=== PATIENT | female | born 1970 | race Caucasian/White ===

== ENCOUNTER 2016-10-23 06:26 | Emergency (ER) | payer OTHER ==
[~2016-10-23] VITALS: Ht 162.6 cm; Wt 80.0 kg
[~2016-10-23 06:26] MED LIST: ALBU1.25 NEB; ALBU17I INH; IPRA0.02 NEB; LEVA500T PO; LEXA10TA PO; METH4PAK PO; PRED10PA PO; SOMA350T PO; VICOTAB4 PO; ZITH250T PO
[2016-10-23 06:29] VITALS: BP 142/84; PULSE 112; RESP 24; TEMP 98.7; O2SAT 100
[2016-10-23] MEDS ORDERED: VENTAER INH ×2 (06:51→09:14)
[2016-10-23] MEDS ORDERED: VICOTAB4 PO (06:52)
[2016-10-23] MEDS ORDERED: CARI350T20 PO (06:52)
[2016-10-23] MEDS ORDERED: LEXA10TA PO (06:52)
[2016-10-23] MEDS ORDERED: IPRA17I INH (06:53)
[2016-10-23] MEDS ORDERED: ALBU6.7H INH (06:54)
[2016-10-23] MEDS ORDERED: SODIUM CHLOR 0.9% 1000 ML INJ 1,000 ML IV ONE (07:15)
[2016-10-23] MEDS ORDERED: SODIUM CHLORIDE 0.9% FLUSH 5 ML FLUSH IVF PRN (07:15)
[2016-10-23] MEDS ORDERED: methylPREDNISolone SOD SUCC 125 MG/2 ML VIAL IVP ONE (07:15)
[2016-10-23] MEDS: RESP: ALBUTEROL 2.5 MG/IPRATROPIUM 0.5 MG NEB (SCH) INH (07:25)
[2016-10-23 07:29] VITALS: O2SAT 100
--- NOTE | 2016-10-23 07:40 | PD ---
HPI Chief Complaint: Respiratory Symptoms Time Seen by Provider: 06:56 Travel History International Travel<30 days: No Contact w/Intl Traveler<30days: No Traveled to known affect area: No History of Present Illness HPI Is a 46-year-old woman with a history of asthma presents to the emergency department complaining of increased asthma symptoms for past couple days. She describes shortness of breath and chest tightness with nonproductive cough consistent with her previous asthma. Last night symptoms were worsening or really relieved with her home bronchodilators. She had some chills but no definite fevers. No other complaints. No nausea or vomiting. No diarrhea constipation. She does travel a lot for work, spitting a lot of time in the car , but no leg swelling or leg pain or history of DVT/PE. History Past Medical History Narrative Medical Asthma Tetanus Vaccination: Unknown Influenza Vaccination: Yes Menopausal: No : 0 Social History Alcohol Use: No Tobacco Use: No (QUIT SMOKING IN 2005) Allergies-Medications (Allergen,Severity, Reaction): Coded Allergies: Aspirin (Verified Allergy, Severe, ASTHMA, 10/23/16) Keflex (Verified Allergy, Severe, Hives, 10/23/16) HIVES AND FEVER Amoxicillin (Verified Adverse Reaction, Severe, HIGH FEVER/RASH, 10/23/16) Sulfa (Verified Adverse Reaction, Severe, HIGH FEVER/RASH, 10/23/16) Uncoded Allergies: STATIN DRUGS (Allergy, Severe, ACHING, 04/30/06) GAMMAGLOBULIN (Adverse Reaction, Severe, WHOLE BODY MUSCLE PARALYSIS, ) Reported Meds & Prescriptions Reported Meds & Active Scripts Active Reported Proventil Hfa 6.7 GM Inh (Albuterol Sulfate) 90 Mcg/Act Aer 2 Puff INH Q4-6H PRN Atrovent HFA 12.9 GM Inh (Ipratropium [place]) 17 Mcg/Act Aer 2 Puff INH QID Carisoprodol 350 Mg Tab 350 Mg PO QID PRN Lexapro (Escitalopram Oxalate) 10 Mg Tab 10 Mg PO DAILY Vicoprofen (Hydrocodone-Ibuprofen) 7.5-200 Mg Tab 1 Tab PO Q6H PRN Review of Systems Except as stated in HPI: all other systems reviewed are Neg Physical Exam Narrative GENERAL: Well-appearing 46-year-old woman, no acute distress. SKIN: Warm and dry. NECK: Trachea midline. No JVD. CARDIOVASCULAR: Regular rate and rhythm. No murmur appreciated. RESPIRATORY: No respiratory distress. Lungs sound fairly clear. No definite wheezes rhonchi's or Rales. GASTROINTESTINAL: Abdomen soft, non-tender, nondistended. Hepatic and splenic margins not palpable. MUSCULOSKELETAL: No obvious deformities. No edema. No calf tenderness. NEUROLOGICAL: Awake and alert. No obvious cranial nerve deficits. Motor grossly within normal limits. Normal speech. PSYCHIATRIC: Appropriate mood and affect; insight and judgment normal. Data Data Last Documented VS Vital Signs Date Time Temp Pulse Resp B/P Pulse Ox O2 Delivery O2 Flow Rate FiO2 10/23/16 08:55 100 20 124/56 99 10/23/16 07:29 21 10/23/16 06:37 Room Air 10/23/16 06:29 98.7 Orders Electrocardiogram (10/23/16 07:07) Chest, Single Ap (10/23/16 07:07) Sodium Chloride 0.9% Flush (Ns Flush) (10/23/16 07:15) Methylprednisolone So Succ Inj (Solumedr (10/23/16 07:15) Albuterol-Ipratropium Neb (Duoneb Neb) (10/23/16 07:15) Sodium Chlor 0.9% 1000 Ml Inj (Ns 1000 M (10/23/16 07:15) MDM Medical Decision Making Medical Screen Exam Complete: Yes Emergency Medical Condition: Yes Interpretation(s) Chest x-ray negative. Differential Diagnosis Asthma, pneumonia, bronchitis, PE, ACS, pneumothorax, other Narrative Course Medical decision making 46-year-old presents emergency Department with chest tightness wheezing and cough, that she feels is completely consistent with her previous asthma symptoms. She gets symptoms chronically, especially weather changes. She has symptoms with flare up about once a year or so. In between flareups she does pretty well and doesn't use her inhalers a lot. She never been intubated. She' s had asthma since childhood. She feels otherwise well. On exam I don't hear a lot of wheezing. Raises a possibility for some kind of mimic. We did x-ray and EKG. No other evidence of PE. We'll give steroids and bronchodilators and fluids, reassess. FINAL: Patient feeling much improved. Still not much wheezing. I still some concern this may be some an asthma mimic but she looks otherwise well, states she feels significantly improved after breathing treatments and steroids. Recommend continue treatment for asthma exacerbation. I discussed the diagnostic uncertainty with the patient and she agrees to return for any worsening symptoms. Diagnosis Primary Impression: Shortness of breath Patient Instructions: General Instructions Additional Instructions: Continue albuterol every 4-6 hours until symptoms all. Take steroids as prescribed. Return to the emergency department for any itching trouble breathing, chest pain , or any other new or worsening symptoms. Follow-up with her primary doctor in the next 2-3 days. Med/Other Pt SpecificInfo: Prescription(s) given Scripts Albuterol 18 GM Inh (Ventolin Hfa 18 GM Inh)90 Mcg/Act Aer2 Puff INH Q4-6H PRN ( SHORTNESS OF BREATH) #1 INHALER Prov:Demian Pritchett MD 10/23/16 Prednisone (Deltasone)20 Mg Tab60 Mg PO DAILY 5 Days Prov:Demian Pritchett MD 10/23/16 Disposition: 01 DISCHARGE HOME Condition: Stable Demian Pritchett MD Oct 23, 2016 07:40
--- NOTE | 2016-10-23 07:45 | RADRPT ---
EXAM DATE/TIME: 10/23/2016 07:24 [facility] COMPARISON: CHEST SINGLE AP, July 15, 2015, 20:03. INDICATIONS : Shortness of breath. MEDICAL HISTORY : Asthma SURGICAL HISTORY : None. ENCOUNTER: Initial ACUITY: 1 day PAIN SCORE: 0/10 LOCATION: Bilateral chest FINDINGS: A single view of the chest demonstrates the lungs to be symmetrically aerated without evidence of mas s, infiltrate or effusion. The cardiomediastinal contours are unremarkable. Osseous structures are intact. CONCLUSION: No acute disease. No significant change has occurred. Luc De La Vega MD on October 23, 2016 at 7:42 Board Certified Radiologist. This report was verified electronically.
[2016-10-23 08:55] VITALS: BP 124/56; PULSE 100; RESP 20; O2SAT 99
[2016-10-23] MEDS ORDERED: PRED-503 PO (09:14)
[2016-10-23] MEDS ORDERED: AZIT250T3 PO (23:04)
--- NOTE | 2016-10-24 08:11 | EKG ---
Date Performed: 10/23/2016 Time Performed: 07:42:50 PTAGE: 46 years EKG: Sinus rhythm WITH SHORT NC INTERVAL NONSPECIFIC T-WAVE ABNORMALITY TRIVIAL VARIATION IN THE ST-T ABNORMALITIES CO MPARED TO THE PRIOR TRACING. BORDERLINE ECG PREVIOUS TRACING : 08/28/2008 13.02 DOCTOR: Lawrence Baer Interpretating Date/Time 10/24/2016 08:08:57
== END 2016-10-23 09:36 | disposition home or self-care (01) ==
LOC: NEPE 06:26
DX: R06.02 Shortness of breath (principal); R07.89 Other chest pain; J45.909 Unspecified asthma, uncomplicated
CPT/HCPCS: 71010; 93005; 94640; 94664; 96361; 96374; 99283; J2930; J7030

== ENCOUNTER 2016-10-23 19:58 | Emergency (ER) | payer OTHER ==
[~2016-10-23] VITALS: Ht 162.6 cm; Wt 80.0 kg
[~2016-10-23 19:58] MED LIST changes: +ALBU6.7H INH; +CARI350T20 PO; +IPRA17I INH; +PRED-503 PO; +VENTAER INH
[2016-10-23 20:01] VITALS: BP 147/75; PULSE 121; RESP 24; TEMP 99.7; O2SAT 99
[2016-10-23 20:16] VITALS: BP 190/90; PULSE 132; RESP 22; O2SAT 99
[2016-10-23 20:22] VITALS: RESP 20; O2SAT 99
[2016-10-23 20:27] VITALS: BP 148/64; PULSE 128; RESP 18; O2SAT 99
[2016-10-23] MEDS ORDERED: SODIUM CHLORIDE 0.9% FLUSH 5 ML FLUSH IVF PRN (20:30)
[2016-10-23] MEDS ORDERED: RESP: ALBUTEROL 2.5 MG/IPRATROPIUM 0.5 MG NEB (SCH) NEB ONE (20:30)
[2016-10-23 20:59] LABS: AUTOMATED NEUTROPHIL # 9.4 TH/MM3 (1.8-7.7); BASOPHIL % 0.2 % (0.0-2.0); HEMATOCRIT 43.8 % (35.0-46.0); HEMO FLAGS DIFF FINAL; LYMPH % 5.2 % (9.0-44.0); LYMPHOCYTE # 0.5 TH/MM3 (1.0-4.8); MEAN CELL VOLUME 90.7 FL (80.0-100.0); MEAN CORPUSCULAR HEMOGLOBIN 30.1 PG (27.0-34.0); MEAN CORPUSCULAR HGB CONC 33.2 % (32.0-36.0); MONO % 3.7 % (0.0-8.0); NEUT % 90.9 % (16.0-70.0); PLATELET COUNT 257 TH/MM3 (150-450); RED BLOOD COUNT 4.83 MIL/MM3 (4.00-5.30); RED CELL DISTRIBUTION WIDTH 15.3 % (11.6-17.2); WHITE BLOOD COUNT 10.4 TH/MM3 (4.0-11.0)
[2016-10-23 21:12] LABS: APTT (PATIENT) 25.2 SEC (24.3-30.1); PROTHROMBIN TIME - PATIENT 10.7 SEC (9.8-11.6)
[2016-10-23 21:21] LABS: ANION GAP 11 MEQ/L (5-15); AST (GOT) 11 U/L (15-37); BICARBONATE 21.5 MEQ/L (21.0-32.0); BLOOD UREA NITROGEN 11 MG/DL (7-18); CHLORIDE 107 MEQ/L (98-107); GLOMERULAR FILTRATION RATE 54 ML/MIN (>89); POTASSIUM 4.2 MEQ/L (3.5-5.1); SODIUM (NA) 139 MEQ/L (136-145)
[2016-10-23 21:40] LABS: ALKALINE PHOSPHATASE 97 U/L (45-117); ALT (GPT) 27 U/L (10-53); TOTAL BILIRUBIN ADULT 0.2 MG/DL (0.2-1.0)
[2016-10-23 21:44] LABS: CREATINE KINASE 46 U/L (26-192)
[2016-10-23] MEDS ORDERED: IOHEXOL 350 MG/ML 10 ML VIAL (for RAD DIAG) IV ONE (21:59)
--- NOTE | 2016-10-23 22:28 | RADRPT ---
EXAM DATE/TIME: 10/23/2016 21:47 [facility] COMPARISON: No previous studies available for comparison. INDICATIONS : Short of breath with chest tightness. IV CONTRAST: 59 cc Omnipaque 350 (iohexol) IV RADIATION DOSE: 12.90 CTDIvol (mGy) MEDICAL HISTORY : Asthma. SURGICAL HISTORY : None. ENCOUNTER: Initial ACUITY: 1 day PAIN SCALE: 3/10 LOCATION: chest TECHNIQUE: Volumetric scanning of the chest was performed using a pulmonary embolism protocol MIP images were reconstructed. Using automated exposure control and adjustment of the mA and/or kV acco rding to patient size, radiation dose was kept as low as reasonably achievable to obtain optimal diag nostic quality images. FINDINGS: There are no suspicious lung lesions identified. There is no axillary adenopathy. The re is no mediastinal adenopathy. There is no evidence for central pulmonary emboli. There is no pericardial effusion. Portion of the liver and spleen identified are free of focal defects. CONCLUSION: There is no evidence for central pulmonary emboli. Joaquín Samuels MD FACR on October 23, 2016 at 22:23 Board Certified Radiologist. This report was verified electronically.
[2016-10-23] MEDS ORDERED: AZIT250T3 PO (23:04)
--- NOTE | 2016-10-23 23:04 | PD ---
HPI Chief Complaint: Respiratory Distress Time Seen by Provider: 20:20 Travel History International Travel<30 days: No Contact w/Intl Traveler<30days: No Traveled to known affect area: No History of Present Illness HPI Patient is a 46-year-old female with the presentation emergency department for the second time today for shortness of breath. Patient was seen this morning for shortness of breath seen by Dr. carr who gave her breathing treatments and she was feeling better. At that time her lung sounds were documented as clear prior to his workup. Patient also endorses she's been coughing congestion she' s been taking some breathing treatments at home but they have stopped working. She was also started on prednisone this morning. No antibiotics. 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 No leg swelling no fevers. States her symptoms are gone on for the past 2-3 days and gradually worsening. PFSH Past Medical History Hx Anticoagulant Therapy: No Arthritis: Yes Asthma: Yes (SINCE SHE WAS A CHILD) Autoimmune Disease: No Heart Rhythm Problems: No Cardiovascular Problems: No High Cholesterol: No Chemotherapy: No Chest Pain: No Congestive Heart Failure: No COPD: No Cerebrovascular Accident: No Diabetes: No Diminished Hearing: No GERD: Yes Glaucoma: No Headaches: Yes (SINUS OCCASIONAL) Hepatitis: No Hiatal Hernia: No Hypertension: No Kidney Stones: No Respiratory: Yes (ASTHMA) Immunizations Current: No Myocardial Infarction: No Renal Failure: No Sleep Apnea: No Thyroid Disease: No Ulcer: No Tetanus Vaccination: < 5 Years Influenza Vaccination: Yes ?: Not Menopausal: No : 0 Past Surgical History AICD: No Appendectomy: Yes (1989) Cholecystectomy: Yes (1996) Endocrine Surgery: Yes (TONSILS AND ADENOIDS A CHILD) Hysterectomy: No Pacemaker: No Tonsillectomy: Yes (1975) Social History Alcohol Use: No Tobacco Use: No (QUIT SMOKING IN 2005) Substance Use: No Allergies-Medications (Allergen,Severity, Reaction): Coded Allergies: Aspirin (Verified Allergy, Severe, ASTHMA, 10/23/16) Keflex (Verified Allergy, Severe, Hives, 10/23/16) HIVES AND FEVER Amoxicillin (Verified Adverse Reaction, Severe, HIGH FEVER/RASH, 10/23/16) Sulfa (Verified Adverse Reaction, Severe, HIGH FEVER/RASH, 10/23/16) Uncoded Allergies: STATIN DRUGS (Allergy, Severe, ACHING, 04/30/06) GAMMAGLOBULIN (Adverse Reaction, Severe, WHOLE BODY MUSCLE PARALYSIS, ) Reported Meds & Prescriptions Reported Meds & Active Scripts Active Azithromycin 250 Mg Tab 250 Mg PO DIRECTED Take 2 tabs (500 mg) on day 1 then 1 tab daily x 4 days. Ventolin Hfa 18 GM Inh (Albuterol Sulfate) 90 Mcg/Act Aer 2 Puff INH Q4-6H PRN Deltasone (Prednisone) 20 Mg Tab 60 Mg PO DAILY 5 Days Reported Proventil Hfa 6.7 GM Inh (Albuterol Sulfate) 90 Mcg/Act Aer 2 Puff INH Q4-6H PRN Atrovent HFA 12.9 GM Inh (Ipratropium [place]) 17 Mcg/Act Aer 2 Puff INH QID Carisoprodol 350 Mg Tab 350 Mg PO QID PRN Vicoprofen (Hydrocodone-Ibuprofen) 7.5-200 Mg Tab 1 Tab PO Q6H PRN Review of Systems Except as stated in HPI: all other systems reviewed are Neg Physical Exam Narrative GENERAL: Well developed well-nourished stress SKIN: Warm and dry. HEAD: Atraumatic. Normocephalic. EYES: Pupils equal and round. No scleral icterus. No injection or drainage. ENT: No nasal bleeding or discharge. Mucous membranes pink and moist. NECK: Trachea midline. No JVD. CARDIOVASCULAR: Regular rhythm minimally tachycardic.. No murmur appreciated. RESPIRATORY: No accessory muscle use. Clear to auscultation. Breath sounds equal bilaterally. Minimally tachypneic GASTROINTESTINAL: Abdomen soft, non-tender, nondistended. Hepatic and splenic margins not palpable. MUSCULOSKELETAL: No obvious deformities. No clubbing. No cyanosis. No edema. NEUROLOGICAL: Awake and alert. No obvious cranial nerve deficits. Motor grossly within normal limits. Normal speech. PSYCHIATRIC: Appropriate mood and affect; insight and judgment normal. Data Data Last Documented VS Vital Signs Date Time Temp Pulse Resp B/P Pulse Ox O2 Delivery O2 Flow Rate FiO2 10/23/16 23:31 98.9 92 18 136/54 99 10/23/16 20:27 Room Air Orders Electrocardiogram (10/23/16 20:20) Ckmb (Isoenzyme) Profile (10/23/16 20:20) Complete Blood Count With Diff (10/23/16 20:20) Comprehensive Metabolic Panel (10/23/16 20:20) Magnesium (Mg) (10/23/16 20:20) Prothrombin Time / Inr (Pt) (10/23/16 20:20) Act Partial Throm Time (Ptt) (10/23/16 20:20) Troponin I (10/23/16 20:20) Ecg Monitoring (10/23/16 20:20) Bilateral Bp Monitoring (10/23/16 20:20) Iv Access Insert/Monitor (10/23/16 20:20) Oximetry (10/23/16 20:20) Oxygen Administration (10/23/16 20:20) Sodium Chloride 0.9% Flush (Ns Flush) (10/23/16 20:30) Albuterol-Ipratropium Neb (Duoneb Neb) (10/23/16 20:30) Ct Pulmonary Angiogram (10/23/16 ) Iohexol 350 Inj (Omnipaque 350 Inj) (10/23/16 21:59) Labs Laboratory Tests Test 10/23/16 20:30 White Blood Count 10.4 TH/MM3 Red Blood Count 4.83 MIL/MM3 Hemoglobin 14.5 GM/DL Hematocrit 43.8 % Mean Corpuscular Volume 90.7 FL Mean Corpuscular Hemoglobin 30.1 PG Mean Corpuscular Hemoglobin 33.2 % Concent Red Cell Distribution Width 15.3 % Platelet Count 257 TH/MM3 Mean Platelet Volume 11.6 FL Neutrophils (%) (Auto) 90.9 % Lymphocytes (%) (Auto) 5.2 % Monocytes (%) (Auto) 3.7 % Eosinophils (%) (Auto) 0.0 % Basophils (%) (Auto) 0.2 % Neutrophils # (Auto) 9.4 TH/MM3 Lymphocytes # (Auto) 0.5 TH/MM3 Monocytes # (Auto) 0.4 TH/MM3 Eosinophils # (Auto) 0.0 TH/MM3 Basophils # (Auto) 0.0 TH/MM3 CBC Comment DIFF FINAL Differential Comment Prothrombin Time 10.7 SEC Prothromb Time International 1.0 RATIO Ratio Activated Partial 25.2 SEC Thromboplast Time Sodium Level 139 MEQ/L Potassium Level 4.2 MEQ/L Chloride Level 107 MEQ/L Carbon Dioxide Level 21.5 MEQ/L Anion Gap 11 MEQ/L Blood Urea Nitrogen 11 MG/DL Creatinine 1.10 MG/DL Estimat Glomerular Filtration 54 ML/MIN Rate Random Glucose 168 MG/DL Calcium Level 9.3 MG/DL Magnesium Level 2.0 MG/DL Total Bilirubin 0.2 MG/DL Aspartate Amino Transf 11 U/L (AST/SGOT) Alanine Aminotransferase 27 U/L (ALT/SGPT) Alkaline Phosphatase 97 U/L Total Creatine Kinase 46 U/L Troponin I LESS THAN 0.02 NG/ML Total Protein 7.8 GM/DL Albumin 4.0 GM/DL MDM Medical Decision Making Medical Screen Exam Complete: Yes Emergency Medical Condition: Yes Differential Diagnosis Bronchitis, pneumonia, PE. Narrative Course Patient seen earlier today for same. Given clear lung sounds will broaden workup. EKG, CT PE labs negative. Feeling better after duoneb. VS normalizing. Stable for discharge. D/W her need to follow up with PCP. Diagnosis Primary Impression: Bronchitis Med/Other Pt SpecificInfo: Prescription(s) given Scripts Azithromycin 250 Mg [id number] Mg PO DIRECTED #6 TAB Ref 0 Take 2 tabs (500 mg) on day 1 then 1 tab daily x 4 days. Prov:Hardik Barrera MD 10/23/16 Disposition: DISCHARGE HOME Condition: Stable Hardik Barrera MD Oct 23, 2016 23:04
[2016-10-23 23:31] VITALS: BP 136/54; TEMP 98.9
--- NOTE | 2016-10-24 20:11 | EKG ---
Date Performed: 10/23/2016 Time Performed: 20:29:40 PTAGE: 46 years EKG: SINUS TACHYCARDIA WITH SHORT DC INTERVAL ABNORMAL RHYTHM ECG PREVIOUS TRACING : 10/23/2016 07.42 Compared to the previous tracing, rate faster DOCTOR: Lana Rowan Interpretating Date/Time 10/24/2016 20:10:51
== END 2016-10-23 23:32 | disposition home or self-care (01) ==
LOC: NEPA 19:58
DX: J40 Bronchitis, not specified as acute or chronic (principal); R00.0 Tachycardia, unspecified; R07.89 Other chest pain
CPT/HCPCS: 71275; 80053; 82550; 83735; 84484; 85025; 85610; 85730; 93005; 94664; 99284; Q9967

== ENCOUNTER 2017-02-28 22:07 | Emergency (ER) | payer OTHER ==
[~2017-02-28] VITALS: Ht 162.6 cm; Wt 84.5 kg
[~2017-02-28 22:07] MED LIST changes: -ALBU1.25 NEB; -ALBU17I INH; +AZIT250T3 PO; -IPRA0.02 NEB; -LEVA500T PO; -LEXA10TA PO; -METH4PAK PO; -PRED10PA PO; -SOMA350T PO; -ZITH250T PO
[2017-02-28 22:18] VITALS: BP 144/83; PULSE 66; RESP 16; TEMP 98.7; O2SAT 99
[2017-02-28] MEDS ORDERED: HYDR7.5T76 PO (22:30)
[2017-02-28] MEDS ORDERED: DICL75TA PO (22:30)
[2017-02-28] MEDS ORDERED: LEXA10TA PO (22:30)
--- NOTE | 2017-02-28 22:34 | PD ---
HPI Chief Complaint: Bite or Sting Time Seen by Provider: 22:32 Travel History International Travel<30 days: No Contact w/Intl Traveler<30days: No Traveled to known affect area: No History of Present Illness HPI 46 year old female with PMH of asthma presents to the ED for evaluation of tick bite of the neck. Patient is unsure when the tick attached, but states that while driving home today she felt something in her left posterior hairline and removed a tick from the area. She is concerned that the head of the tick may still be in place. Denies other somatic complaints. PFSH Past Medical History Hx Anticoagulant Therapy: No Arthritis: Yes Asthma: Yes (SINCE SHE WAS A CHILD) Autoimmune Disease: No Heart Rhythm Problems: No Cardiovascular Problems: No High Cholesterol: No Chemotherapy: No Chest Pain: No Congestive Heart Failure: No COPD: No Cerebrovascular Accident: No Diabetes: No Diminished Hearing: No GERD: Yes Glaucoma: No Headaches: Yes (SINUS OCCASIONAL) Hepatitis: No Hiatal Hernia: No Hypertension: No Kidney Stones: No Respiratory: Yes (ASTHMA) Immunizations Current: No Myocardial Infarction: No Renal Failure: No Sleep Apnea: No Thyroid Disease: No Ulcer: No ?: Not LMP: last week Menopausal: No : 0 Past Surgical History AICD: No Appendectomy: Yes (1989) Cholecystectomy: Yes (1996) Endocrine Surgery: Yes (TONSILS AND ADENOIDS A CHILD) Hysterectomy: No Pacemaker: No Tonsillectomy: Yes (1975) Social History Alcohol Use: No Tobacco Use: No (QUIT SMOKING IN 2005) Substance Use: No Allergies-Medications (Allergen,Severity, Reaction): Coded Allergies: Aspirin (Verified Allergy, Severe, ASTHMA, 10/23/16) Keflex (Verified Allergy, Severe, Hives, 10/23/16) HIVES AND FEVER Amoxicillin (Verified Adverse Reaction, Severe, HIGH FEVER/RASH, 10/23/16) Sulfa (Verified Adverse Reaction, Severe, HIGH FEVER/RASH, 10/23/16) Uncoded Allergies: STATIN DRUGS (Allergy, Severe, ACHING, 04/30/06) GAMMAGLOBULIN (Adverse Reaction, Severe, WHOLE BODY MUSCLE PARALYSIS, ) Reported Meds & Prescriptions Reported Meds & Active Scripts Active Ventolin Hfa 18 GM Inh (Albuterol Sulfate) 90 Mcg/Act Aer 2 Puff INH Q4-6H PRN Reported Diclofenac Sodium DR (Diclofenac Sodium) 75 Mg Tabdr 75 Mg PO DAILY Hydrocodone-Ibuprofen 7.5-200 Mg Tab 1 Tab PO Q6H PRN Lexapro (Escitalopram Oxalate) 10 Mg Tab 10 Mg PO DAILY Proventil Hfa 6.7 GM Inh (Albuterol Sulfate) 90 Mcg/Act Aer 2 Puff INH Q4-6H PRN Review of Systems Except as stated in HPI: all other systems reviewed are Neg Physical Exam Narrative GENERAL: Well-nourished, well-developed white female in NAD. SKIN: Focused skin assessment warm/dry. There is a subcentimeter, coin shaped erythematous area in the left posterolateral hairline. No visible or palpable FB. No active bleeding. No signs of infection. HEAD: Normocephalic. EYES: No scleral icterus. No injection or drainage. NECK: Supple, trachea midline. No JVD or lymphadenopathy. CARDIOVASCULAR: Regular rate and rhythm without murmurs, gallops, or rubs. RESPIRATORY: Breath sounds equal bilaterally. No accessory muscle use. GASTROINTESTINAL: Abdomen soft, non-tender, nondistended. MUSCULOSKELETAL: No cyanosis, or edema. BACK: Nontender without obvious deformity. No CVA tenderness. Data Data Last Documented VS Vital Signs Date Time Temp Pulse Resp B/P Pulse Ox O2 Delivery O2 Flow Rate FiO2 02/28/17 22:18 98.7 66 16 144/83 99 MDM Medical Decision Making Medical Screen Exam Complete: Yes Emergency Medical Condition: Yes Differential Diagnosis insect bite versus retained FB versus lyme disease versus other Narrative Course 46 year old female with PMH of asthma presents to the ED for evaluation of tick bite of the neck. Patient is unsure when the tick attached, but states that while driving home today she felt something in her left posterior hairline and removed a tick from the area. She is concerned that the head of the tick may still be in place. Denies other somatic complaints. Vitals reviewed. Physical exam reveals a well appearing white female in NAD. There is a subcentimeter, coin shaped erythematous area in the left posterolateral hairline. No visible or palpable FB. No active bleeding. No signs of infection. I educated the patient that if any parts of the tick remain the body will expel it. I cautioned the patient to monitor for signs of infection, follow up with the PCP. She indicated understanding of the instructions and is amenable to the care plan. She is stable and discharged home. Diagnosis Primary Impression: Tick bite of neck Qualified Code: S10.96XA - Tick bite of neck, initial encounter Referrals: Primary Care Physician Patient Instructions: General Instructions, Tick Bite (ED) Additional Instructions: Keep the wound clean and dry. Monitor for signs of infection as discussed. Follow-up with primary care provider. Return to the ED for any urgent or emergent medical condition. Disposition: 01 DISCHARGE HOME Condition: Stable Keena Peterson February 28, 2017 22:33
== END 2017-02-28 23:02 | disposition home or self-care (01) ==
LOC: PHEFT 22:07
DX: S10.96XA Insect bite of unspecified part of neck, initial encounter (principal); M19.90 Unspecified osteoarthritis, unspecified site; J45.909 Unspecified asthma, uncomplicated; Z79.899 Other long term (current) drug therapy; Z88.6 Allergy status to analgesic agent; Z88.0 Allergy status to penicillin; Z88.2 Allergy status to sulfonamides; K21.9 Gastro-esophageal reflux disease without esophagitis; W57.XXXA Bitten or stung by nonvenomous insect and other nonvenomous arthropods, initial encounter
CPT/HCPCS: 99282

== ENCOUNTER 2017-05-12 14:33 | Emergency (ER) | payer OTHER ==
[~2017-05-12] VITALS: Ht 165.1 cm; Wt 82.8 kg
[~2017-05-12 14:33] MED LIST changes: -AZIT250T3 PO; -CARI350T20 PO; +DICL75TA PO; +HYDR7.5T76 PO; -IPRA17I INH; +LEXA10TA PO; -PRED-503 PO; -VICOTAB4 PO
[2017-05-12 14:40] VITALS: BP 144/68; PULSE 75; RESP 16; TEMP 98.9; O2SAT 99
[2017-05-12] MEDS ORDERED: IPRASOL INH (16:02)
[2017-05-12] MEDS ORDERED: AUGM875T3 PO (16:06)
[2017-05-12] MEDS ORDERED: AZIT250T3 PO (16:10)
--- NOTE | 2017-05-12 16:24 | PD ---
HPI Chief Complaint: Cold / Flu Symptoms Time Seen by Provider: 16:00 Travel History International Travel<30 days: No Contact w/Intl Traveler<30days: No Traveled to known affect area: No History of Present Illness HPI 46-year-old female presents to the emergency room for evaluation of nonproductive cough, congestion, sore throat, headache, dizziness, and chills for the past 3 days. Patient called her primary care physician at [facility] and they called in a prescription for azithromycin but the pharmacy that they called it into is closed today and she is leaving to go out of town at 6:00 AM tomorrow. Patient states her mucous has become green, brown, and yellow. She has been taking [id number] Mucinex which moderately relieved her symptoms. Patient has history of asthma but denies any increased wheezing or shortness of breath. She has been using her albuterol occasionally but has not needed to use any Duonebs. Denies fever, nausea, and vomiting. PFSH Past Medical History Hx Anticoagulant Therapy: No Arthritis: Yes Asthma: Yes (SINCE SHE WAS A CHILD) Autoimmune Disease: No Heart Rhythm Problems: No Cardiovascular Problems: No High Cholesterol: No Chemotherapy: No Chest Pain: No Congestive Heart Failure: No COPD: No Cerebrovascular Accident: No Diabetes: No Diminished Hearing: No GERD: Yes Glaucoma: No Headaches: Yes (SINUS OCCASIONAL) Hepatitis: No Hiatal Hernia: No Hypertension: No Kidney Stones: No Respiratory: Yes (asthma) Immunizations Current: No Myocardial Infarction: No Renal Failure: No Sleep Apnea: No Thyroid Disease: No Ulcer: No Tetanus Vaccination: < 5 Years Influenza Vaccination: No ?: Not LMP: 3 weeks ago Menopausal: No : 0 Past Surgical History AICD: No Appendectomy: Yes (1989) Cholecystectomy: Yes (1996) Endocrine Surgery: Yes (TONSILS AND ADENOIDS A CHILD) Hysterectomy: No Pacemaker: No Tonsillectomy: Yes (1975) Social History Alcohol Use: No Tobacco Use: No (QUIT SMOKING IN 2005) Substance Use: No Allergies-Medications (Allergen,Severity, Reaction): Coded Allergies: Aspirin (Verified Allergy, Severe, ASTHMA, 10/23/16) Keflex (Verified Allergy, Severe, Hives, 10/23/16) HIVES AND FEVER Amoxicillin (Verified Adverse Reaction, Severe, HIGH FEVER/RASH, 10/23/16) Sulfa (Verified Adverse Reaction, Severe, HIGH FEVER/RASH, 10/23/16) Uncoded Allergies: STATIN DRUGS (Allergy, Severe, ACHING, 04/30/06) GAMMAGLOBULIN (Adverse Reaction, Severe, WHOLE BODY MUSCLE PARALYSIS, ) Reported Meds & Prescriptions Reported Meds & Active Scripts Active Azithromycin 250 Mg Tab 250 Mg PO DIRECTED Take 2 tabs (500 mg) on day 1 then 1 tab daily x 4 days. Ventolin Hfa 18 GM Inh (Albuterol Sulfate) 90 Mcg/Act Aer 2 Puff INH Q4-6H PRN Reported Duoneb (Ipratropium-Albuterol Neb) 0.5-2.5 Mg/3 Ml Neb 1 Nebule INH Q6HR NEB Diclofenac Sodium DR (Diclofenac Sodium) 75 Mg Tabdr 75 Mg PO DAILY Hydrocodone-Ibuprofen 7.5-200 Mg Tab 1 Tab PO Q6H PRN Proventil Hfa 6.7 GM Inh (Albuterol Sulfate) 90 Mcg/Act Aer 2 Puff INH Q4-6H PRN Review of Systems Except as stated in HPI: all other systems reviewed are Neg Physical Exam Narrative GENERAL: Well-nourished, well-developed female in no acute distress. Afebrile. Ambulatory. SKIN: Focused skin assessment warm/dry. HEAD: Normocephalic. EYES: No scleral icterus. No injection or drainage. NECK: Supple, trachea midline. No JVD or lymphadenopathy. ENT: Mucosa pink and moist. No erythema or exudates. No uvular edema. No uvular , palatal, or tonsillar deviation. Airway patent. Nasal turbinates appear normal without nasal blood, purulent drainage or septal hematoma. EARS: Bilateral pinnae and external canals appear within normal limits. Bilateral tympanic membranes without erythema, dullness or perforation. CARDIOVASCULAR: Regular rate and rhythm without murmurs, gallops, or rubs. RESPIRATORY: Breath sounds equal bilaterally. No accessory muscle use. No crackles, rales, wheezes, or rhonchi. Data Data Last Documented VS Vital Signs Date Time Temp Pulse Resp B/P Pulse Ox O2 Delivery O2 Flow Rate FiO2 05/12/17 14:40 98.9 75 16 144/68 99 MDM Medical Decision Making Medical Screen Exam Complete: Yes Emergency Medical Condition: Yes Medical Record Reviewed: Yes Differential Diagnosis Sinusitis, upper respiratory infection, viral pharyngitis Narrative Course 46-year-old female with history of asthma presents to the emergency room requesting antibiotics for cough and cold symptoms for 3 days. Patient states her primary care physician called her in antibiotics to a pharmacy that she cannot get to before she leaves out of town tomorrow morning. Vital signs stable. No history of fevers. Lung sounds clear and equal bilaterally. No purulent nasal discharge, erythema of the pharynx, or evidence of otitis media. Patient's symptoms are likely viral however because she is going out of town, she will be given a prescription for azithromycin. Patient was warned against taking antibiotics unless indicated because it can cause resistance. She was told to follow-up with her primary care physician or return for worsening symptoms. She understands and agrees to plan. Diagnosis Primary Impression: Sinusitis chronic, frontal Referrals: Primary Care Physician Patient Instructions: General Instructions, Sinusitis (ED) Additional Instructions: Rest and drink plenty of fluids. This is likely viral. Do not take antibiotics unless symptoms persist greater than 5 days or you develop a fever greater than 101. Otherwise, take azithromycin as directed, until gone. Take ibuprofen with food as directed, as needed for pain. Apply ice to the affected area for 20 minutes at a time, as needed for pain and swelling. Follow-up with a primary care physician. Return to the emergency room for worsening symptoms. Med/Other Pt SpecificInfo: Prescription(s) given Scripts Azithromycin 250 Mg Ejt300 Mg PO DIRECTED #6 TAB Ref 0 Take 2 tabs (500 mg) on day 1 then 1 tab daily x 4 days. Prov:Niraj Tirado MD 05/12/17 Disposition: 01 DISCHARGE HOME Condition: Stable Kaylene Oakley May 12, 2017 16:24
== END 2017-05-12 16:32 | disposition home or self-care (01) ==
LOC: PHED 14:33
DX: J32.9 Chronic sinusitis, unspecified (principal)
CPT/HCPCS: 99283